=== PATIENT | male | born 1945 | race Caucasian/White ===

== ENCOUNTER 2016-03-19 08:54 | Outpatient (CLI) | payer MEDICARE ==
[2016-03-19 16:37] LABS: Prothrombin Time 28.8 SEC (12.0-14.7)
== END 2016-03-19 08:55 ==
LOC: LABLEX 08:54
PROVIDERS: ATTEND Family Medicine
DX: I48.91 Unspecified atrial fibrillation (principal)
CPT/HCPCS: 36415; 85610

== ENCOUNTER 2016-07-22 07:20 | Emergency (ER) | payer MEDICARE ==
[2016-07-22] MEDS ORDERED: Ketorolac Tromethamine 60 MG/2 ML VIAL ONE (07:45)
[2016-07-22] MEDS ORDERED: Cyclobenzaprine 10 MG TAB ONE (07:45)
== END 2016-07-22 08:23 | disposition home or self-care (01) ==
LOC: BURERS 07:20
DX: M54.2 Cervicalgia (principal); I48.91 Unspecified atrial fibrillation; E11.9 Type 2 diabetes mellitus without complications; E78.5 Hyperlipidemia, unspecified; I10 Essential (primary) hypertension; Z87.891 Personal history of nicotine dependence
CPT/HCPCS: 96372; J1885

== ENCOUNTER 2016-09-14 14:13 | Emergency (ER) | payer MEDICARE ==
[2016-09-14 15:02] LABS: INR-International Normal Ratio 3.4; Prothrombin Time 35.8 SEC (12.0-14.7)
[2016-09-14 15:06] LABS: Alcohol 140 mg/dL (Less than 10); Anion Gap 17 mmol/L (10-20); BUN (Urea Nitrogen) 11 mg/dL (8.4-25.7); Calc. Creatinine Clearance 0 mL/min (70-130); Carbon Dioxide 21 mmol/L (23-31); Chloride 102 mmol/L (98-107); Estimated GFR-MDRD Greater than 90; Glucose 115 mg/dL (83-110); Potassium 3.8 mmol/L (3.5-5.1); Sodium 136 mmol/L (136-145)
== END 2016-09-14 15:24 | disposition home or self-care (01) ==
LOC: BURERS 14:13
DX: F10.10 Alcohol abuse, uncomplicated (principal); I48.91 Unspecified atrial fibrillation; N40.0 Benign prostatic hyperplasia without lower urinary tract symptoms; E11.9 Type 2 diabetes mellitus without complications; E78.5 Hyperlipidemia, unspecified; I10 Essential (primary) hypertension; Z87.891 Personal history of nicotine dependence; W18.30XA Fall on same level, unspecified, initial encounter
CPT/HCPCS: 80048; 80307; 85610; 93005

== ENCOUNTER 2016-10-07 10:59 | Outpatient (CLI) | payer MEDICARE ==
[2016-10-07 16:20] LABS: #Basophils 0.2 thou/uL (0.0-0.2); #Eosinphils 0.2 thou/uL (0.0-0.7); #Lymphocytes 2.4 thou/uL (1.20-3.40); #Monocytes 0.8 thou/uL (0.11-0.59); #Neutrophils 7.1 thou/uL (1.40-6.50); %Basophils 1.8 % (0.0-1.0); %Lymphocytes 22.6 % (21.0-51.0); %Monocytes 7.3 % (0.0-10.0); %Neutrophils 66.3 % (42.0-75.0); Hemoglobin 16.8 g/dL (14.0-18.0); Mean Corpuscular HGB CONC 32.6 g/dL (32.0-36.0); Mean Corpuscular Hemoglobin 28.5 pg (27.0-31.0); Mean Corpuscular Volume 87.6 fl (80.0-94.0); Platelet Count 332 thou/uL (130-400); RBC Distribution Width 13.2 % (11.5-14.5); Red Blood Cell (RBC) Count 5.88 mill/uL (4.70-6.10); White Blood Cell (WBC) Count 10.7 thou/uL (4.8-10.8)
[2016-10-07 16:33] LABS: INR-International Normal Ratio 2.5; Prothrombin Time 27.6 SEC (12.0-14.7)
[2016-10-07 16:42] LABS: ALT (SGPT) 13 U/L (8-55); AST (SGOT) 14 U/L (5-34); Albumin 4.3 g/dL (3.4-4.8); Alkaline Phosphatase 112 U/L (40-150); Anion Gap 16 mmol/L (10-20); BUN (Urea Nitrogen) 13 mg/dL (8.4-25.7); Bilirubin, Total 0.6 mg/dL (0.2-1.2); Calc. Creatinine Clearance 0 mL/min (70-130); Calcium 9.5 mg/dL (7.8-10.44); Carbon Dioxide 26 mmol/L (23-31); Cardiac Risk 3.5 (Less than 4.5); Chloride 104 mmol/L (98-107); Cholesterol 138 mg/dl (< 200 Desired); Estimated GFR-MDRD 88; Globulin 3.7 g/dL (2.4-3.5); Glucose 130 mg/dL (83-110); HDL Cholesterol 40 mg/dL (>60 Neg Risk); LDL Cholesterol, Calculated 82 mg/dL; Potassium 4.5 mmol/L (3.5-5.1); Sodium 141 mmol/L (136-145); Triglycerides 82 mg/dL (Less than 150)
[2016-10-07 17:22] LABS: PSA-Symptomatic (DIAGNOSTIC) 1.23 ng/mL (0-4.0)
[2016-10-07 18:30] LABS: Creatinine, Urine 29.13 mg/dL (63-166); Microalbumin Urine Less than 1.0 mg/dL (0.5-50.0); Microalbumin/Creat Ratio 34.3 mg/g (Less than 30)
== END 2016-10-07 11:00 ==
LOC: LABLEX 10:59
PROVIDERS: ATTEND Family Medicine
DX: E78.5 Hyperlipidemia, unspecified (principal); E11.9 Type 2 diabetes mellitus without complications; I10 Essential (primary) hypertension; D64.9 Anemia, unspecified; N40.0 Benign prostatic hyperplasia without lower urinary tract symptoms; I48.91 Unspecified atrial fibrillation; Z79.01 Long term (current) use of anticoagulants
CPT/HCPCS: 80053; 80061; 82043; 83036; 84153; 84443; 85025; 85610

== ENCOUNTER 2017-06-18 11:56 | Emergency (ER) | payer MEDICARE ==
[2017-06-18 12:19] LABS: #Basophils 0.2 thou/uL (0.0-0.2); #Eosinphils 0.3 thou/uL (0.0-0.7); #Lymphocytes 2.6 thou/uL (1.20-3.40); #Neutrophils 9.5 thou/uL (1.40-6.50); %Basophils 1.3 % (0.0-1.0); %Eosinophils 2.5 % (0.0-10.0); %Lymphocytes 19.2 % (21.0-51.0); %Monocytes 7.1 % (0.0-10.0); %Neutrophils 69.9 % (42.0-75.0); Hemoglobin 14.5 g/dL (14.0-18.0); Mean Corpuscular HGB CONC 32.9 g/dL (32.0-36.0); Mean Corpuscular Hemoglobin 28.2 pg (27.0-31.0); Mean Corpuscular Volume 85.6 fl (80.0-94.0); Mean Platelet Volume 8.5 fL (7.4-10.4); Platelet Count 269 thou/uL (130-400); RBC Distribution Width 13.1 % (11.5-14.5); Red Blood Cell (RBC) Count 5.14 mill/uL (4.70-6.10); White Blood Cell (WBC) Count 13.5 thou/uL (4.8-10.8)
[2017-06-18 12:21] LABS: INR-International Normal Ratio 1.5; PTT 29.9 SEC (22.9-36.1); Prothrombin Time 18.5 SEC (12.0-14.7)
[2017-06-18 12:29] LABS: ALT (SGPT) 16 U/L (8-55); AST (SGOT) 12 U/L (5-34); Albumin 3.5 g/dL (3.4-4.8); Alkaline Phosphatase 104 U/L (40-150); Anion Gap 12 mmol/L (10-20); BUN (Urea Nitrogen) 13 mg/dL (8.4-25.7); Bilirubin, Total 0.5 mg/dL (0.2-1.2); Calc. Creatinine Clearance 0 mL/min (70-130); Calcium 8.7 mg/dL (7.8-10.44); Chloride 107 mmol/L (98-107); Estimated GFR-MDRD Greater than 90; Globulin 3.3 g/dL (2.4-3.5); Glucose 136 mg/dL (83-110); Potassium 3.9 mmol/L (3.5-5.1); Protein, Total 6.8 g/dL (5.8-8.1); Sodium 139 mmol/L (136-145)
[2017-06-18 12:33] LABS: CKMB 1.5 ng/mL (0-6.6); Troponin I Less than 0.010 ng/mL (< 0.028)
[2017-06-18 12:51] LABS: Carbon Dioxide 24 mmol/L (23-31)
--- NOTE | 2017-06-18 21:24 | CT ---
CT OF THE BRAIN WITHOUT CONTRAST: 06/18/[address] was performed for evaluation of dizziness and nausea. No prior scans were available for comparison. Diffuse moderately severe atrophy is present with moderate compensatory dilatation of the ventricles. There is no ventricular shift. Some deep white matter hypolucency is present typical of chronic isch emic changes, though it was not excessive. There were no findings of mass, edema, or obvious acute st roke. The mastoid air cells are clear and each IAC was normal in size. There is mucosal thickening in the floor of the left maxillary sinus. The sphenoid sinus is clear. IMPRESSION: 1. Diffuse atrophy with mild chronic ischemic change. 2. Left maxillary sinus mucosal thickening. POS: HOME
== END 2017-06-18 13:50 | disposition short-term general hospital (02) ==
LOC: BURERS 11:56
DX: R55 Syncope and collapse (principal); R00.1 Bradycardia, unspecified; N40.0 Benign prostatic hyperplasia without lower urinary tract symptoms; I48.91 Unspecified atrial fibrillation; E11.9 Type 2 diabetes mellitus without complications; E78.5 Hyperlipidemia, unspecified; I10 Essential (primary) hypertension; Z87.891 Personal history of nicotine dependence; Z79.899 Other long term (current) drug therapy; Z79.01 Long term (current) use of anticoagulants; Z79.84 Long term (current) use of oral hypoglycemic drugs
CPT/HCPCS: 70450; 80053; 82553; 83880; 84443; 84484; 85025; 85610; 85730; 93005

== ENCOUNTER 2017-12-02 14:21 | Inpatient (IN) | payer MEDICARE ==
[2017-12-02 14:52] LABS: #Basophils 0.1 thou/uL (0.0-0.2); #Eosinphils 0.1 thou/uL (0.0-0.7); #Lymphocytes 2.2 thou/uL (1.20-3.40); #Monocytes 1.1 thou/uL (0.11-0.59); #Neutrophils 9.4 thou/uL (1.40-6.50); %Basophils 1.1 % (0.0-1.0); %Eosinophils 1.1 % (0.0-10.0); %Lymphocytes 16.8 % (21.0-51.0); %Monocytes 8.5 % (0.0-10.0); %Neutrophils 72.5 % (42.0-75.0); Hemoglobin 13.7 g/dL (14.0-18.0); Mean Corpuscular HGB CONC 33.6 g/dL (32.0-36.0); Mean Corpuscular Hemoglobin 29.1 pg (27.0-31.0); Mean Corpuscular Volume 86.5 fL (78.0-98.0); Mean Platelet Volume 7.9 fL (7.4-10.4); Platelet Count 374 thou/uL (130-400); RBC Distribution Width 12.9 % (11.5-14.5); Red Blood Cell (RBC) Count 4.71 mill/uL (4.70-6.10); White Blood Cell (WBC) Count 12.9 thou/uL (4.8-10.8)
[2017-12-02 15:28] LABS: ALT (SGPT) 14 U/L (8-55); AST (SGOT) 10 U/L (5-34); Albumin 3.7 g/dL (3.4-4.8); Alkaline Phosphatase 88 U/L (40-150); Anion Gap 13 mmol/L (10-20); BUN (Urea Nitrogen) 13 mg/dL (8.4-25.7); Bilirubin, Total 0.4 mg/dL (0.2-1.2); Calc. Creatinine Clearance 0 mL/min (70-130); Calcium 9.2 mg/dL (7.8-10.44); Carbon Dioxide 26 mmol/L (23-31); Chloride 105 mmol/L (98-107); Estimated GFR-MDRD Greater than 90; Globulin 3.7 g/dL (2.4-3.5); Glucose 187 mg/dL (83-110); Potassium 3.9 mmol/L (3.5-5.1); Protein, Total 7.4 g/dL (5.8-8.1); Sodium 140 mmol/L (136-145)
[2017-12-02] MEDS ORDERED: Ondansetron ODT 4 MG TAB SL PRN (18:01)
[2017-12-02] MEDS ORDERED: Ondansetron HCl/PF 4 MG/2 ML Vial IVP PRN (18:01)
[2017-12-02] MEDS ORDERED: Bisacodyl 5 MG TAB PO PRN (18:08)
[2017-12-02] MEDS ORDERED: Dextrose 5% in Water 1,000 ML IV PRN ×2 (18:46→18:47)
[2017-12-02] MEDS ORDERED: Dextrose 50% Abboject 50 ML SYRINGE SLOW IVP PRN ×2 (18:46→18:47)
[2017-12-02] MEDS ORDERED: HumaLOG 300 UNITS/3 ML VIAL SC PRN (18:46)
[2017-12-02 18:47] VITALS: BMI 36.2
--- NOTE | 2017-12-02 18:58 | RAD ---
RIGHT ANKLE THREE VIEWS: 12/02/17 Comparison is made with 2013 films of the ankle. The patient had prior pinning of a medial malleolar fracture. There is also a screw through the distal fibula. There is considerable soft tissue swelling around the ankle. Bony spurring is seen in the tibiotalar joint and there is narrowing of the joint space, though not more so than before. There is a small sli daniella of bone seen between the distal fibula and talus that is probably a cortical avulsion, but still more likely related to the old injury. The lateral view shows a large calcaneal spur and ossification at the insertion of the Achilles tendon. IMPRESSION: Old postoperative changes. Considerable soft tissue swelling but no acute bony findings. POS: HOME
--- NOTE | 2017-12-02 18:59 | RAD ---
RIGHT FOOT THREE VIEWS: 12/02/17 There is some swelling in the foot and forefoot, but no fracture was appreciated. All bones appeared intact. A large calcaneal spur was noted. IMPRESSION: Soft tissue swelling. POS: HOME
[2017-12-02] MEDS: Apixaban 5 MG TAB PO SCH (20:34)
[2017-12-02] MEDS: Acetaminophen 325 MG TAB PO PRN (20:34)
[2017-12-02] MEDS ORDERED: Prevnar 13-Val Conj/PF 0.5 ML SYRINGE IM ONE (21:00)
--- NOTE | 2017-12-03 01:48 | HP ---
DATE OF ADMISSION: 12/02/2017 CHIEF COMPLAINT: Swelling and pain in right ankle. HISTORY OF PRESENT ILLNESS: Patient is a 72-year-old white male with a history of atrial fibrillatio n and diabetes mellitus who presents to the emergency room with a several day history of increasing p ain, swelling, and redness to his right lower extremity. Patient believes he may have bumped his misa t 3-5 days ago, but does not report any other injury, but has had progressive pain in the right ankle with swelling and redness. Patient denies any fevers, chills, night sweats, nausea, or vomiting. Kisha encinas is pleasantly confused, but believes he has been taking his medications appropriately. Unsure of obdulio ivet's history of diabetes control. Of note, he had a history of surgery to his right lower extrem ity. He said many years ago, unsure of the exact date. He has hardware with screws from that injury several years ago. PAST MEDICAL HISTORY: 1. History of atrial fibrillation on oral anticoagulation. 2. History of sick sinus syndrome, status post pacemaker placement. 3. History of diabetes mellitus, type 2. 4. History of morbid obesity. 5. History of prostatic hypertrophy. 6. History of glaucoma. PAST SURGICAL HISTORY: 1. Status post pacemaker placement, status post cataract surgery and status post right ankle surgery with plates and screws placed at that time. 2. History of cyst removal from his testicles in the distant past. CURRENT MEDICATIONS: Include metformin 1000 mg p.o. b.i.d., potassium chloride 10 mEq p.o. daily, li sinopril/hydrochlorothiazide 20/12.5 one tablet daily, Eliquis 5 mg b.i.d., carvedilol 3.125 mg p.o. b.i.d. ALLERGIES: CODEINE. SOCIAL HISTORY: Patient lives with his in [place], they have a grown son who lives in the [facility]. He has been fairly independent in all activities of daily living, although he appears to be sligh tly confused in the examination. Upon questioning his , she reports "some days, he does well and some days he does not do as well" with easy forgetfulness. No known history from patient or of any dementia. Patient is a former smoker. No significant alcohol or social drug use. FAMILY HISTORY: Positive for diabetes with multiple family members and history of hypertension. REVIEW OF SYSTEMS: Other than HPI, patient denies any recent visual changes, no sore throat, no ches t pain or shortness of breath. No diarrhea, nausea, or vomiting. Patient reports occasional constip ation. No significant low back pain. Patient denies any rashes other than the redness to his right lower extremity. Patient denies depression. PHYSICAL EXAMINATION: GENERAL: White male elderly, alert and oriented to place and person only. VITAL SIGNS: Blood pressure 131/83, pulse was in the 80s, respiratory rate was 16, temperature was 9 9.1 oral, O2 saturation was 96% on room air. HEENT: Atraumatic, normocephalic. Extraocular movements are intact. Oropharynx showed poor dentiti on, no masses, no lesions noted. NECK: Supple. LUNGS: Clear to auscultation bilaterally. HEART: Regularly regular rate and rhythm, but rate was approximately in the 80s-90s. ABDOMEN: Obese, soft, nontender, nondistended, no masses were palpated. EXTREMITIES: Left lower extremity showed some mild erythema to the left lower extremity. There was no warmth nor tenderness. Right lower extremities show diffuse swelling around the ankle and dorsal proximal foot. It was warm to palpation and slightly tender. There was no obvious puncture lambert no r breaks to the skin noted. Patient does have significant onychomycosis of the toes of the right low er extremity. There was a well-healed scar in the medial and lateral malleolus. X-rays were perform ed of the right ankle, which showed no obvious acute findings other than the swelling as in exam. LABORATORY AND X-RAY FINDINGS: Otherwise showed white blood count is significant for 12,900, hemoglo bin 13.7, and hematocrit 40.8. Comprehensive metabolic panel significant for glucose of 187. The re st of the labs were within the normal range. Lactic acid was normal at 2.0. ASSESSMENT AND PLAN: 1. Cellulitis, right lower extremity. Patient has multiple comorbidities including cardiac disease and diabetes with signs of poor sensation to the lower extremities with his history of recent hardwar e and progressive swelling and redness of his right lower extremity. Outpatient treatment was contra indicated and required inpatient IV antibiotics. We will treat him with vancomycin plus Levaquin for broad spectrum coverage. Blood cultures were drawn in the ER. We will await those results. He mark l have elevation of his right lower extremity and we will continue to andreas the area of swelling for s igns of improvement. We will decrease his ambulation while he is treated with IV antibiotics. 2. Diabetes mellitus. Patient is currently on metformin. We will check Accu-Cheks before meals and at bedtime. 3. History of atrial fibrillation with heart failure. Patient will continue his Eliquis, carvedilol , Lasix, and IFTIKHAR inhibitor. It is unsure about patient's mental status, he appears to be easily confused and forgetful. This may be chronic in nature related to new-onset dementia. We will follow for any change in symptoms. DISPOSITION: Patient will likely be discharged to home. He currently has home health.
[2017-12-03] MEDS: Vancomycin HCl 1 GM in Sodium Chloride 0.9% 250 ML 250 ML IVPB SCH ×4 (04:00→17:45)
[2017-12-03 05:31] LABS: #Basophils 0.1 thou/uL (0.0-0.2); #Eosinphils 0.2 thou/uL (0.0-0.7); #Lymphocytes 2.2 thou/uL (1.20-3.40); #Monocytes 1.2 thou/uL (0.11-0.59); #Neutrophils 8.4 thou/uL (1.40-6.50); %Basophils 0.9 % (0.0-1.0); %Eosinophils 1.4 % (0.0-10.0); %Lymphocytes 18.3 % (21.0-51.0); %Monocytes 10.1 % (0.0-10.0); %Neutrophils 69.3 % (42.0-75.0); Hemoglobin 13.1 g/dL (14.0-18.0); Mean Corpuscular HGB CONC 32.9 g/dL (32.0-36.0); Mean Corpuscular Hemoglobin 28.5 pg (27.0-31.0); Mean Corpuscular Volume 86.9 fL (78.0-98.0); Mean Platelet Volume 8.1 fL (7.4-10.4); Platelet Count 349 thou/uL (130-400); RBC Distribution Width 12.5 % (11.5-14.5); Red Blood Cell (RBC) Count 4.59 mill/uL (4.70-6.10); White Blood Cell (WBC) Count 12.1 thou/uL (4.8-10.8)
[2017-12-03 05:44] LABS: ALT (SGPT) 10 U/L (8-55); AST (SGOT) 7 U/L (5-34); Albumin 3.4 g/dL (3.4-4.8); Alkaline Phosphatase 82 U/L (40-150); Anion Gap 14 mmol/L (10-20); BUN (Urea Nitrogen) 10 mg/dL (8.4-25.7); Bilirubin, Total 0.7 mg/dL (0.2-1.2); Calc. Creatinine Clearance 180 mL/min (70-130); Calcium 8.6 mg/dL (7.8-10.44); Carbon Dioxide 24 mmol/L (23-31); Chloride 104 mmol/L (98-107); Estimated GFR-MDRD Greater than 90; Globulin 3.5 g/dL (2.4-3.5); Glucose 152 mg/dL (83-110); Potassium 3.6 mmol/L (3.5-5.1); Protein, Total 6.9 g/dL (5.8-8.1); Sodium 138 mmol/L (136-145)
[2017-12-03] MEDS: Furosemide 40 MG TAB PO SCH (07:41)
[2017-12-03] MEDS: Apixaban 5 MG TAB PO SCH ×2 (08:05→20:58)
[2017-12-03] MEDS: Atorvastatin Calcium 10 MG TAB PO SCH (08:05)
[2017-12-03] MEDS: metFORMIN 500 MG TAB PO SCH ×2 (08:05→17:31)
[2017-12-03] MEDS: Potassium Chloride 10 MEQ TAB PO SCH (08:05)
[2017-12-03] MEDS: Hydrochlorothiazide 25 MG TAB PO SCH (08:06)
[2017-12-03] MEDS: Floranex Packet PO SCH (08:06)
[2017-12-03] MEDS: Lisinopril 20 MG TAB PO SCH (08:07)
[2017-12-03] MEDS ORDERED: Acetaminophen 500 MG TAB ONE (11:25)
[2017-12-03] MEDS ORDERED: Ondansetron ODT 4 MG TAB ONE (12:18)
[2017-12-03] MEDS: HumaLOG 300 UNITS/3 ML VIAL SC PRN (13:07)
[2017-12-03] MEDS: Acetaminophen 325 MG TAB PO PRN (20:58)
[2017-12-04 03:41] LABS: Hemoglobin 13.3 g/dL (14.0-18.0); Platelet Count 395 thou/uL (130-400)
[2017-12-04 03:50] LABS: Vancomycin, Trough 11.8 ug/mL
[2017-12-04] MEDS: Vancomycin HCl 1 GM in Sodium Chloride 0.9% 250 ML 250 ML IVPB SCH ×4 (04:05→17:49)
[2017-12-04 04:08] LABS: Calc. Creatinine Clearance 182 mL/min (70-130); Estimated GFR-MDRD Greater than 90
[2017-12-04] MEDS: Furosemide 40 MG TAB PO SCH (07:22)
[2017-12-04] MEDS: metFORMIN 500 MG TAB PO SCH ×2 (08:12→17:37)
[2017-12-04] MEDS: Floranex Packet PO SCH (08:12)
[2017-12-04] MEDS: Potassium Chloride 10 MEQ TAB PO SCH (08:12)
[2017-12-04] MEDS: Apixaban 5 MG TAB PO SCH ×2 (08:12→20:14)
[2017-12-04] MEDS: Atorvastatin Calcium 10 MG TAB PO SCH (08:13)
[2017-12-04] MEDS: Hydrochlorothiazide 25 MG TAB PO SCH (08:13)
[2017-12-04] MEDS: Lisinopril 20 MG TAB PO SCH (08:14)
[2017-12-04] MEDS: HumaLOG 300 UNITS/3 ML VIAL SC PRN (18:07)
[2017-12-04] MEDS: Acetaminophen 325 MG TAB PO PRN (20:45)
[2017-12-05 03:44] LABS: Vancomycin, Trough 13.9 ug/mL
[2017-12-05] MEDS: Vancomycin HCl 1 GM in Sodium Chloride 0.9% 250 ML 250 ML IVPB SCH ×4 (04:06→17:00)
[2017-12-05] MEDS ORDERED: Vancomycin HCl 500 MG in Sodium Chloride 0.9% 100 ML IVPB SCH (06:00)
[2017-12-05] MEDS: Potassium Chloride 10 MEQ TAB PO SCH (08:00)
[2017-12-05] MEDS: Furosemide 40 MG TAB PO SCH (08:00)
[2017-12-05] MEDS: metFORMIN 500 MG TAB PO SCH ×2 (08:01→17:00)
[2017-12-05] MEDS: Floranex Packet PO SCH (08:46)
[2017-12-05] MEDS: Hydrochlorothiazide 25 MG TAB PO SCH (08:46)
[2017-12-05] MEDS: Atorvastatin Calcium 10 MG TAB PO SCH (08:47)
[2017-12-05] MEDS: Lisinopril 20 MG TAB PO SCH (08:47)
[2017-12-05] MEDS: Apixaban 5 MG TAB PO SCH ×2 (08:47→20:56)
[2017-12-05] MEDS: HumaLOG 300 UNITS/3 ML VIAL SC PRN (12:30)
[2017-12-05] MEDS: Acetaminophen 325 MG TAB PO PRN (15:55)
[2017-12-05 17:07] LABS: #Basophils 0.1 thou/uL (0.0-0.2); #Eosinphils 0.4 thou/uL (0.0-0.7); #Lymphocytes 2.2 thou/uL (1.20-3.40); #Monocytes 1.3 thou/uL (0.11-0.59); #Neutrophils 9.6 thou/uL (1.40-6.50); %Eosinophils 2.7 % (0.0-10.0); %Lymphocytes 16.2 % (21.0-51.0); %Monocytes 9.8 % (0.0-10.0); %Neutrophils 70.4 % (42.0-75.0); Hemoglobin 12.7 g/dL (14.0-18.0); Mean Corpuscular HGB CONC 32.9 g/dL (32.0-36.0); Mean Corpuscular Hemoglobin 28.4 pg (27.0-31.0); Mean Corpuscular Volume 86.2 fL (78.0-98.0); Platelet Count 418 thou/uL (130-400); RBC Distribution Width 12.5 % (11.5-14.5); Red Blood Cell (RBC) Count 4.47 mill/uL (4.70-6.10); White Blood Cell (WBC) Count 13.7 thou/uL (4.8-10.8)
[2017-12-05] MEDS ORDERED: Colchicine 0.6 MG TAB PO SCH (18:45)
[2017-12-06] MEDS: Vancomycin HCl 1 GM in Sodium Chloride 0.9% 250 ML 250 ML IVPB SCH ×3 (04:01→15:26)
[2017-12-06 05:18] LABS: Hemoglobin 12.9 g/dL (14.0-18.0); Platelet Count 415 thou/uL (130-400)
[2017-12-06 05:22] LABS: Calc. Creatinine Clearance 177 mL/min (70-130); Estimated GFR-MDRD Greater than 90
[2017-12-06 06:27] VITALS: BP 104/70; TEMP 98
[2017-12-06] MEDS ORDERED: Colchicine 0.6 MG TAB PO SCH (07:00)
[2017-12-06] MEDS: Floranex Packet PO SCH (08:53)
[2017-12-06] MEDS: Acetaminophen 325 MG TAB PO PRN (08:53)
[2017-12-06] MEDS: metFORMIN 500 MG TAB PO SCH (08:53)
[2017-12-06] MEDS: Hydrochlorothiazide 25 MG TAB PO SCH (08:54)
[2017-12-06] MEDS: Potassium Chloride 10 MEQ TAB PO SCH (08:55)
[2017-12-06] MEDS: Apixaban 5 MG TAB PO SCH (08:55)
[2017-12-06] MEDS: Furosemide 40 MG TAB PO SCH (08:55)
[2017-12-06] MEDS: Lisinopril 20 MG TAB PO SCH (08:56)
[2017-12-06 10:16] LABS: #Basophils 0.1 thou/uL (0.0-0.2); #Eosinphils 0.2 thou/uL (0.0-0.7); #Lymphocytes 1.8 thou/uL (1.20-3.40); #Neutrophils 9.1 thou/uL (1.40-6.50); %Basophils 0.9 % (0.0-1.0); %Lymphocytes 14.8 % (21.0-51.0); %Monocytes 8.1 % (0.0-10.0); %Neutrophils 74.2 % (42.0-75.0); Hemoglobin 12.6 g/dL (14.0-18.0); Mean Corpuscular HGB CONC 31.9 g/dL (32.0-36.0); Mean Corpuscular Hemoglobin 27.7 pg (27.0-31.0); Mean Corpuscular Volume 86.9 fL (78.0-98.0); Platelet Count 395 thou/uL (130-400); RBC Distribution Width 12.5 % (11.5-14.5); Red Blood Cell (RBC) Count 4.55 mill/uL (4.70-6.10); White Blood Cell (WBC) Count 12.2 thou/uL (4.8-10.8)
[2017-12-06 15:17] LABS: Vancomycin, Trough 18.6 ug/mL
--- NOTE | 2017-12-09 16:39 | PQF ---
SHIRA KUMAR KIA E MD [id number] CLINICAL DOCUMENTATION CLARIFICATION FORM: POST DISCHARGE Addendum to original discharge summary date: ____ Late entry note date: 12/10/17 DATE: 12/09/2017 ATTN: MERCEDEZ FRYE MD Please exercise your independent, professional judgment in responding to the clarification form. Clinical indicators are provided on the bottom of this form for your review Please check appropriate box(s): HEART FAILURE: A. TYPE: [ x] Systolic / HFrEF [ ] Diastolic / HFpEF [ ] Combined Systolic / Diastolic B. ACUITY [ ] Acute [ ] Acute on Chronic [ x ] Chronic [ ] Other diagnosis [ ] Unable to determine In addition, please specify: Present on Admission (POA): [x ] Yes [ ] No [ ] Unable to determine For continuity of documentation, please document condition throughout progress notes and discharge summary. Thank You. CLINICAL INDICATORS - SIGNS / SYMPTOMS / LABS Edema, History of afib and heart failure. CHF Continue Eliquis, Carvedilol, Lasix, IFTIKHAR inhibitor. (This form is maintained as a part of the permanent medical record) 2014 [employer], [employer]. All Rights Reserved Raheel [phone] MTDHoracio
== END 2017-12-06 16:59 | disposition swing bed (61) | DRG 603 ==
LOC: BURERS 14:21 → BURMED 16:00
PROVIDERS: ADMIT Family Medicine; ATTEND Family Medicine
DX: L03.115 Cellulitis of right lower limb (principal); I50.22 Chronic systolic (congestive) heart failure; I48.91 Unspecified atrial fibrillation; E11.9 Type 2 diabetes mellitus without complications; Z79.01 Long term (current) use of anticoagulants; Z95.0 Presence of cardiac pacemaker; E66.01 Morbid (severe) obesity due to excess calories; Z87.891 Personal history of nicotine dependence; B35.1 Tinea unguium; Z91.81 History of falling; N40.0 Benign prostatic hyperplasia without lower urinary tract symptoms; Z68.36 Body mass index [BMI] 36.0-36.9, adult
CPT/HCPCS: 36415; 36416; 80053; 80202; 82565; 83605; 84550; 85014; 85018; 85025; 85049; 87040; 96365; 96366; A4216; J1956; J3370; J7050; Q0162

== ENCOUNTER 2017-12-06 16:59 | Inpatient (IN) | payer MEDICARE ==
[2017-12-06] MEDS ORDERED: Ondansetron ODT 4 MG TAB SL PRN (17:26)
[2017-12-06] MEDS ORDERED: Ondansetron HCl/PF 4 MG/2 ML Vial IVP PRN (17:26)
[2017-12-06] MEDS ORDERED: Bisacodyl 5 MG TAB PO PRN (17:27)
[2017-12-06] MEDS ORDERED: Dextrose 5% in Water 1,000 ML IV PRN (17:29)
[2017-12-06] MEDS ORDERED: Dextrose 50% Abboject 50 ML SYRINGE SLOW IVP PRN (17:29)
[2017-12-06] MEDS ORDERED: HumaLOG 300 UNITS/3 ML VIAL SC PRN ×2 (17:29)
[2017-12-06] MEDS: Vancomycin HCl 1 GM in Sodium Chloride 0.9% 250 ML 250 ML IVPB SCH (17:33)
[2017-12-06] MEDS ORDERED: metFORMIN 500 MG TAB PO SCH (18:15)
[2017-12-06] MEDS ORDERED: Acetaminophen 325 MG TAB ONE (18:38)
[2017-12-06] MEDS: Acetaminophen 325 MG TAB PO PRN (18:42)
[2017-12-06] MEDS: Apixaban 5 MG TAB PO SCH (20:27)
[2017-12-06] MEDS: Colchicine 0.6 MG TAB PO SCH (20:28)
[2017-12-06] MEDS ORDERED: Apixaban 5 MG TAB PO SCH (21:00)
[2017-12-07] MEDS: Vancomycin HCl 1 GM in Sodium Chloride 0.9% 250 ML 250 ML IVPB SCH ×4 (03:16→17:44)
[2017-12-07] MEDS ORDERED: Furosemide 40 MG TAB PO SCH (07:30)
[2017-12-07] MEDS ORDERED: metFORMIN 500 MG TAB PO SCH (08:00)
[2017-12-07] MEDS ORDERED: Acetaminophen 325 MG TAB ONE (08:51)
[2017-12-07] MEDS ORDERED: Non-Formulary Item 1 EACH (Lisinopril/Hydrochlorothiazide [Lisinopril-Hctz 20-12.5 Mg Tab PO SCH (09:00)
[2017-12-07] MEDS ORDERED: Potassium Chloride 10 MEQ TAB PO SCH (09:00)
[2017-12-07] MEDS: Floranex Packet PO SCH (09:08)
[2017-12-07] MEDS: Acetaminophen 325 MG TAB PO PRN (09:09)
[2017-12-07] MEDS: metFORMIN 500 MG TAB PO SCH ×2 (09:09→17:43)
[2017-12-07] MEDS: Apixaban 5 MG TAB PO SCH ×2 (09:09→20:46)
[2017-12-07] MEDS: Colchicine 0.6 MG TAB PO SCH ×2 (09:09→20:46)
[2017-12-07] MEDS: Furosemide 40 MG TAB PO SCH (09:10)
[2017-12-07] MEDS: Hydrochlorothiazide 25 MG TAB PO SCH (09:10)
[2017-12-07] MEDS: Potassium Chloride 10 MEQ TAB PO SCH (09:10)
[2017-12-07] MEDS: Lisinopril 20 MG TAB PO SCH (09:11)
[2017-12-07] MEDS ORDERED: Nystatin Powder 15 GM BOT TOP PRN (14:30)
[2017-12-08] MEDS: Vancomycin HCl 1 GM in Sodium Chloride 0.9% 250 ML 250 ML IVPB SCH ×4 (03:25→18:06)
[2017-12-08 05:20] LABS: Hemoglobin 13.2 g/dL (14.0-18.0); Platelet Count 424 thou/uL (130-400)
[2017-12-08 05:24] LABS: Calc. Creatinine Clearance 175 mL/min (70-130); Estimated GFR-MDRD Greater than 90
[2017-12-08 07:41] VITALS: BMI 34.2
[2017-12-08] MEDS: Furosemide 40 MG TAB PO SCH (09:13)
[2017-12-08] MEDS: metFORMIN 500 MG TAB PO SCH ×2 (09:13→18:06)
[2017-12-08] MEDS: Potassium Chloride 10 MEQ TAB PO SCH (09:13)
[2017-12-08] MEDS: Floranex Packet PO SCH (09:14)
[2017-12-08] MEDS: Apixaban 5 MG TAB PO SCH ×2 (09:14→20:57)
[2017-12-08] MEDS: Lisinopril 20 MG TAB PO SCH (09:16)
[2017-12-08] MEDS: Colchicine 0.6 MG TAB PO SCH ×2 (09:16→20:57)
[2017-12-08] MEDS: Hydrochlorothiazide 25 MG TAB PO SCH (09:16)
[2017-12-08 12:11] LABS: #Basophils 0.1 thou/uL (0.0-0.2); #Eosinphils 0.3 thou/uL (0.0-0.7); #Lymphocytes 2.4 thou/uL (1.20-3.40); #Monocytes 1.3 thou/uL (0.11-0.59); %Basophils 0.9 % (0.0-1.0); %Eosinophils 2.4 % (0.0-10.0); %Monocytes 9.4 % (0.0-10.0); %Neutrophils 70.4 % (42.0-75.0); Hemoglobin 14.4 g/dL (14.0-18.0); Mean Corpuscular HGB CONC 33.7 g/dL (32.0-36.0); Mean Corpuscular Hemoglobin 28.5 pg (27.0-31.0); Mean Corpuscular Volume 84.6 fL (78.0-98.0); Mean Platelet Volume 7.5 fL (7.4-10.4); Platelet Count 432 thou/uL (130-400); RBC Distribution Width 12.1 % (11.5-14.5); Red Blood Cell (RBC) Count 5.05 mill/uL (4.70-6.10); White Blood Cell (WBC) Count 14.2 thou/uL (4.8-10.8)
[2017-12-08 15:14] LABS: Vancomycin, Trough 18.1 ug/mL
[2017-12-08] MEDS: Acetaminophen 325 MG TAB PO PRN (20:58)
[2017-12-09] MEDS: Vancomycin HCl 1 GM in Sodium Chloride 0.9% 250 ML 250 ML IVPB SCH ×4 (03:46→17:30)
[2017-12-09] MEDS: Floranex Packet PO SCH (09:16)
[2017-12-09] MEDS: Colchicine 0.6 MG TAB PO SCH ×2 (09:22→21:17)
[2017-12-09] MEDS: metFORMIN 500 MG TAB PO SCH ×2 (09:23→17:31)
[2017-12-09] MEDS: Hydrochlorothiazide 25 MG TAB PO SCH (09:23)
[2017-12-09] MEDS: Apixaban 5 MG TAB PO SCH ×2 (09:24→21:17)
[2017-12-09] MEDS: Furosemide 40 MG TAB PO SCH (09:25)
[2017-12-09] MEDS: Potassium Chloride 10 MEQ TAB PO SCH (09:25)
[2017-12-09] MEDS: Lisinopril 20 MG TAB PO SCH (09:26)
[2017-12-09] MEDS: Acetaminophen 325 MG TAB PO PRN (21:15)
--- NOTE | 2017-12-09 21:32 | RAD ---
RIGHT ANKLE THREE VIEWS: 12/09/17 Comparison is made with a 12/02 study, as well as an older 01/20/13 exam. Again noted is the prior ORIF with screws in the medial malleolus and fibula. There has been no subst antial asbestos remover the interval. There is a minor amount of lucency around the proximal portion of th e screw in the medial malleolus but I am not sure it is really that different than before. There hav e been no interval changes. Arthritic changes are seen in the tibiotalar joint. If there is a concern for osteomyelitis, other imaging modalities would be needed. IMPRESSION: No interval change. POS: HOME
--- NOTE | 2017-12-09 21:34 | RAD ---
RIGHT FOOT THREE VIEWS: 12/09/17 No fracture or area of bone destruction was seen. A little periosteal reaction along the fourth metat arsal is probably age related. A large calcaneal spur is present as usual. IMPRESSION: No acute bony findings. POS: HOME
[2017-12-10] MEDS: Vancomycin HCl 1 GM in Sodium Chloride 0.9% 250 ML 250 ML IVPB SCH ×4 (03:47→18:50)
[2017-12-10 05:01] LABS: Hemoglobin 13.2 g/dL (14.0-18.0); Platelet Count 384 thou/uL (130-400)
[2017-12-10 05:09] LABS: Calc. Creatinine Clearance 172 mL/min (70-130); Estimated GFR-MDRD Greater than 90
[2017-12-10] MEDS: Floranex Packet PO SCH (10:17)
[2017-12-10] MEDS: Hydrochlorothiazide 25 MG TAB PO SCH (10:17)
[2017-12-10] MEDS: Furosemide 40 MG TAB PO SCH (10:22)
[2017-12-10] MEDS: Apixaban 5 MG TAB PO SCH ×2 (10:22→20:54)
[2017-12-10] MEDS: Colchicine 0.6 MG TAB PO SCH ×2 (10:22→20:54)
[2017-12-10] MEDS: metFORMIN 500 MG TAB PO SCH ×2 (10:22→16:23)
[2017-12-10] MEDS: Potassium Chloride 10 MEQ TAB PO SCH (10:22)
[2017-12-10] MEDS: cefTRIAXone\\ROCEPHIN 2 GM in Sodium Chloride 0.9% 100 ML IVPB SCH (10:23)
[2017-12-10] MEDS: Lisinopril 20 MG TAB PO SCH (10:23)
[2017-12-11] MEDS: Vancomycin HCl 1 GM in Sodium Chloride 0.9% 250 ML 250 ML IVPB SCH ×3 (04:06→16:15)
[2017-12-11] MEDS: Furosemide 40 MG TAB PO SCH (08:30)
[2017-12-11] MEDS: metFORMIN 500 MG TAB PO SCH ×2 (08:31→16:16)
[2017-12-11] MEDS: Colchicine 0.6 MG TAB PO SCH ×2 (08:31→20:25)
[2017-12-11] MEDS: Lisinopril 20 MG TAB PO SCH (08:31)
[2017-12-11] MEDS: Potassium Chloride 10 MEQ TAB PO SCH (08:32)
[2017-12-11] MEDS: Hydrochlorothiazide 25 MG TAB PO SCH (08:32)
[2017-12-11] MEDS: Floranex Packet PO SCH (08:32)
[2017-12-11] MEDS: Apixaban 5 MG TAB PO SCH ×2 (08:32→20:25)
[2017-12-11] MEDS: cefTRIAXone\\ROCEPHIN 2 GM in Sodium Chloride 0.9% 100 ML IVPB SCH (09:45)
[2017-12-11 15:46] LABS: Vancomycin, Trough 23.1 ug/mL
[2017-12-11] MEDS: Vancomycin HCl 750 MG in Sodium Chloride 0.9% 250 ML 250 ML IVPB SCH (18:03)
[2017-12-12] MEDS: Vancomycin HCl 1 GM in Sodium Chloride 0.9% 250 ML 250 ML IVPB SCH (03:04)
[2017-12-12] MEDS: Vancomycin HCl 750 MG in Sodium Chloride 0.9% 250 ML 250 ML IVPB SCH (03:14)
[2017-12-12 05:49] LABS: Calc. Creatinine Clearance 165 mL/min (70-130); Estimated GFR-MDRD Greater than 90
[2017-12-12 06:03] LABS: Hemoglobin 13.5 g/dL (14.0-18.0); Platelet Count 411 thou/uL (130-400)
[2017-12-12 06:21] VITALS: TEMP 98.2
[2017-12-12] MEDS: Hydrochlorothiazide 25 MG TAB PO SCH (09:24)
[2017-12-12] MEDS: metFORMIN 500 MG TAB PO SCH (09:25)
[2017-12-12] MEDS: Colchicine 0.6 MG TAB PO SCH (09:25)
[2017-12-12] MEDS: Apixaban 5 MG TAB PO SCH (09:25)
[2017-12-12] MEDS: Furosemide 40 MG TAB PO SCH (09:26)
[2017-12-12] MEDS: Lisinopril 20 MG TAB PO SCH (09:26)
[2017-12-12] MEDS: Potassium Chloride 10 MEQ TAB PO SCH (09:26)
[2017-12-12 09:27] VITALS: BP 129/73
[2017-12-12] MEDS: Floranex Packet PO SCH (09:27)
[2017-12-12] MEDS: cefTRIAXone\\ROCEPHIN 2 GM in Sodium Chloride 0.9% 100 ML IVPB SCH (09:27)
== END 2017-12-12 14:00 | disposition home health service (06) | DRG 603 ==
LOC: BURMED 16:59
PROVIDERS: ADMIT Family Medicine; ATTEND Family Medicine
DX: L03.115 Cellulitis of right lower limb (principal); R53.1 Weakness; E11.9 Type 2 diabetes mellitus without complications
CPT/HCPCS: 36415; 36416; 80202; 82565; 85014; 85018; 85025; 85049; A4216; G8978-GP-CL; G8979-GP-CI; J0696; J1956; J3370; J7050

== ENCOUNTER 2019-04-27 09:36 | Emergency (ER) | payer MEDICARE ==
[2019-04-27 10:22] LABS: Bilirubin Negative (Negative); Blood, Urine Negative (Negative); Clarity Clear (Clear); Glucose, Urine (Dipstick) Negative (Negative); Leukocyte Negative (Negative); Nitrite Negative (Negative); Protein, Urine (Dipstick) Negative (Neg-Trace); Urobilinogen 0.2 mg/dL (Less than 2)
[2019-04-27 10:26] LABS: INR-International Normal Ratio 1.1; PTT 27.7 SEC (22.9-36.1); Prothrombin Time 13.8 SEC (12.0-14.7)
[2019-04-27 10:29] LABS: #Basophils 0.2 thou/uL (0.0-0.2); #Eosinphils 0.4 thou/uL (0.0-0.7); #Lymphocytes 2.2 thou/uL (1.20-3.40); #Monocytes 0.9 thou/uL (0.11-0.59); #Neutrophils 7.4 thou/uL (1.40-6.50); %Basophils 1.5 % (0.0-1.0); %Lymphocytes 19.9 % (21.0-51.0); %Monocytes 7.8 % (0.0-10.0); %Neutrophils 66.8 % (42.0-75.0); Hemoglobin 13.6 g/dL (14.0-18.0); Mean Corpuscular HGB CONC 32.1 g/dL (32.0-36.0); Mean Corpuscular Hemoglobin 28.2 pg (27.0-31.0); Mean Corpuscular Volume 87.7 fL (78.0-98.0); Mean Platelet Volume 7.6 fL (7.4-10.4); Platelet Count 270 thou/uL (130-400); RBC Distribution Width 12.7 % (11.5-14.5); Red Blood Cell (RBC) Count 4.85 mill/uL (4.70-6.10); White Blood Cell (WBC) Count 11.1 thou/uL (4.8-10.8)
[2019-04-27 10:36] LABS: ALT (SGPT) 16 U/L (8-55); AST (SGOT) 12 U/L (5-34); Albumin 3.7 g/dL (3.4-4.8); Alkaline Phosphatase 124 U/L (40-110); Anion Gap 14 mmol/L (10-20); BUN (Urea Nitrogen) 10 mg/dL (8.4-25.7); Bilirubin, Total 0.7 mg/dL (0.2-1.2); Calc. Creatinine Clearance 0 mL/min (70-130); Calcium 9.1 mg/dL (7.8-10.44); Carbon Dioxide 23 mmol/L (23-31); Chloride 106 mmol/L (98-107); Estimated GFR-MDRD 90; Globulin 3.4 g/dL (2.4-3.5); Glucose 119 mg/dL (83-110); Protein, Total 7.1 g/dL (5.8-8.1); Sodium 139 mmol/L (136-145)
[2019-04-27] MEDS ORDERED: Aspirin Chewable 81 MG TAB ONE (11:25)
--- NOTE | 2019-04-27 12:07 | CT ---
CT BRAIN WITHOUT CONTRAST: Date: 04/27/[address] was done for evaluation of dizziness. Comparison made with a 06/18/17 study. FINDINGS: The ventricles are large, though only slight moreso than 2018. This is probably due to the diffuse at rophy present. No signs of acute stroke, mass, edema, or bleeding found. The visible paranasal sinuse s and mastoid air cells were clear today. A small low density area is seen in the ventral caudal medu lla and is likely artifact as a stroke in this location would cause paralysis and not dizziness. IMPRESSION: Prominent atrophy and ventriculomegaly. No definite acute findings. Findings discussed with Dr. Regalado at 1048 hours on 04/27/2019. CODE CR. POS: HOME
--- NOTE | 2019-04-27 12:13 | RAD ---
PORTABLE CHEST: Date: 04/27/2019 An AP portable film at 1027 hours is compared with a 06/23/17 study. The film clips the costophrenic angles. The heart is borderline in size, but there is no congestive change or pleural effusion. No lobar infi ltrate or edema could be seen. Cardiac pacer remains in place as before. IMPRESSION: No acute thoracic findings. POS: HOME
== END 2019-04-27 11:55 | disposition short-term general hospital (02) ==
LOC: BURERS 09:36
DX: R55 Syncope and collapse (principal); E11.9 Type 2 diabetes mellitus without complications; E66.9 Obesity, unspecified; E78.5 Hyperlipidemia, unspecified; I48.91 Unspecified atrial fibrillation; N40.0 Benign prostatic hyperplasia without lower urinary tract symptoms; Z87.891 Personal history of nicotine dependence; Z79.899 Other long term (current) drug therapy; Z79.84 Long term (current) use of oral hypoglycemic drugs
CPT/HCPCS: 70450; 71045; 80053; 81003; 83880; 84484; 85025; 85610; 85730; 93005

== ENCOUNTER 2019-12-06 03:09 | Emergency (ER) | payer MEDICARE ==
[2019-12-06] MEDS ORDERED: Ketorolac Tromethamine 30 MG/ML VIAL ONE (04:13)
[2019-12-06] MEDS ORDERED: Morphine 10 MG/ML VIAL ONE (04:13)
[2019-12-06 04:58] LABS: INR-International Normal Ratio 1.1; Prothrombin Time 14.1 sec (12.0-14.7)
[2019-12-06 04:59] LABS: #Basophils 0.2 thou/uL (0.0-0.2); #Eosinphils 0.3 thou/uL (0.0-0.7); #Lymphocytes 2.2 thou/uL (1.20-3.40); #Monocytes 0.8 thou/uL (0.11-0.59); #Neutrophils 8.2 thou/uL (1.40-6.50); %Basophils 1.7 % (0.0-1.0); %Eosinophils 2.6 % (0.0-10.0); %Lymphocytes 18.7 % (21.0-51.0); %Neutrophils 70.1 % (42.0-75.0); Mean Corpuscular HGB CONC 30.9 g/dL (32.0-36.0); Mean Corpuscular Hemoglobin 27.5 pg (27.0-31.0); Mean Corpuscular Volume 89.1 fL (78.0-98.0); Mean Platelet Volume 7.9 fL (7.4-10.4); Platelet Count 335 thou/uL (130-400); RBC Distribution Width 13.8 % (11.5-14.5); Red Blood Cell (RBC) Count 5.45 mill/uL (4.70-6.10); White Blood Cell (WBC) Count 11.7 thou/uL (4.8-10.8)
[2019-12-06 05:04] LABS: Bilirubin Negative (Negative); Blood, Urine Trace (Negative); Clarity Cloudy (Clear); Glucose, Urine (Dipstick) Negative (Negative); Ketone, Urine Negative (Negative); Leukocyte Small (Negative); Nitrite Negative (Negative); Protein, Urine (Dipstick) 30 mg/dL (Neg-Trace); Urobilinogen 0.2 mg/dL (Less than 2); pH, Urine 5.5 (5.0-9.0)
[2019-12-06 05:05] LABS: Specific Gravity, Urine 1.022 (1.002-1.036)
[2019-12-06 05:07] LABS: WBC/HPF 21-50 HPF (0-3)
[2019-12-06 05:08] LABS: ALT (SGPT) 10 U/L (8-55); AST (SGOT) 12 U/L (5-34); Albumin 4.1 g/dL (3.4-4.8); Alkaline Phosphatase 97 U/L (40-110); Anion Gap 17 mmol/L (10-20); BUN (Urea Nitrogen) 20 mg/dL (8.4-25.7); Bacteria/HPF 4+ HPF (None Seen); Bilirubin, Total 0.7 mg/dL (0.2-1.2); Calc. Creatinine Clearance 0 mL/min (70-130); Carbon Dioxide 22 mmol/L (23-31); Chloride 106 mmol/L (98-107); Globulin 3.6 g/dL (2.4-3.5); Glucose 140 mg/dL (83-110); Potassium 3.8 mmol/L (3.5-5.1); Protein, Total 7.7 g/dL (5.8-8.1); Sodium 141 mmol/L (136-145); Squamous Epithelial None Seen HPF (0-3)
[2019-12-06] MEDS ORDERED: cefTRIAXone\\ROCEPHIN 1 GM VIAL ONE (05:40)
[2019-12-06] MEDS ORDERED: Lidocaine 2% PF 5 ML VIAL ONE (05:42)
--- NOTE | 2019-12-06 07:31 | CT ---
PRELIMINARY REPORT/[facility]/EMERGENCY AFTER HOURS PROCEDURE: EXAM: CT Abdomen and Pelvis Without Intravenous Contrast CLINICAL HISTORY: R/O AAA, BACK PAIN, DIFFICULT PT. TECHNIQUE: Axial computed tomography images of the abdomen and pelvis without intravenous contrast. CONTRAST: None. COMPARISON: None provided. FINDINGS: LUNG BASES: Moderate right and small left pleural effusion. Pacemaker lead visualized within the heart. LIVER: Unremarkable. GALLBLADDER AND BILE DUCTS: Unremarkable. No calcified stone. No ductal dilation. PANCREAS: Unremarkable. SPLEEN: Unremarkable. ADRENAL GLANDS: Unremarkable. KIDNEYS, URETERS, AND BLADDER: Unremarkable. No hydronephrosis or nephrolithiasis. No ureteral or bladder calculi. STOMACH AND BOWEL: No obstruction. No wall thickening. No CT evidence of colitis or acute diverticulitis. APPENDIX: No CT evidence for appendicitis. PERITONEUM: No free fluid. No free air. LYMPH NODES: No lymphadenopathy. REPRODUCTIVE: Unremarkable as visualized. VASCULATURE: No aortic aneurysm. ABDOMINAL WALL AND SOFT TISSUES: Small bilateral fat-containing inguinal hernias. Small fat-containing umbilical hernia. BONES: Mild degenerative changes of the spine. MISCELLANEOUS: Multiple images degraded by motion artifact as well as streak artifact overlying the abdomen. IMPRESSION: Multiple images degraded by motion artifact as well as streak artifact overlying the abdomen. No acute intra-abdominal or pelvic abnormality. No aortic aneurysm. Moderate right and small left pleural effusion. ELECTRONICALLY SIGNED BY: Funmilayo Lopez MD Dec 06, 2019 4:53:52 AM CDT This report is intended for review by the ordering physician only, in accordance of law. If you recei ve this report in error, please call [facility] at [phone]. FINAL REPORT EMERGENCY AFTER HOURS CT ABDOMEN AND PELVIS WITHOUT CONTRAST: Date: 12/06/[address] of the abdomen and pelvis was done for evaluation of back pain with a concern for aortic pa thology. A moderate right pleural effusion and small left pleural effusion are present. This causes some compr essive atelectasis in the lower lobes. No pericardial effusion was appreciated. The liver, spleen, pa ncreas, adrenal glands, kidneys, and abdominal aorta showed no acute findings. The aorta is incomplet yarely evaluation since no IV contrast was given; however, there is certainly no aneurysm. The bowel shows no distention or wall thickening. No inflammatory change is seen around bowel. A mini mal fat-filled umbilical hernia is present. CT of the pelvis shows no pelvic masses, fluid collections, or inflammatory changes. Small, fat-fille d inguinal hernias are noted bilaterally. There is some streak artifact and motion artifact on this study that degrades some images more than o thers. IMPRESSION: No acute abdominal or pelvic findings. No evidence for aortic aneurysm. An aortic dissection would no t be diagnosable given no IV contrast. Report in agreement with preliminary reading by [facility]. POS: HOME
== END 2019-12-06 06:12 | disposition home or self-care (01) ==
LOC: BURERS 03:09
DX: N39.0 Urinary tract infection, site not specified (principal); J90 Pleural effusion, not elsewhere classified; E11.9 Type 2 diabetes mellitus without complications; E66.9 Obesity, unspecified; I49.9 Cardiac arrhythmia, unspecified; I48.91 Unspecified atrial fibrillation; N40.0 Benign prostatic hyperplasia without lower urinary tract symptoms; Z87.891 Personal history of nicotine dependence; Z79.899 Other long term (current) drug therapy; Z79.84 Long term (current) use of oral hypoglycemic drugs
CPT/HCPCS: 36415; 51798; 74176; 80053; 81003; 81015; 85025; 85610; 87077; 87086; 87186; 96372; J0696; J1885; J2270